=== PATIENT | female | born 1950 | race African-American/Black ===

== ENCOUNTER 2018-07-04 12:08 | Emergency (ER) | payer BC ==
[~2018-07-04] VITALS: Ht 167.6 cm; Wt 92.0 kg
[2018-07-04] MEDS ORDERED: SODIUM CHLORIDE 0.9% 1,000 ML IV ONE (12:30)
[2018-07-04 13:35] LABS: BASOPHILS % 0.8 % (0.0-2.0); EOSINOPHILS % 1.6 % (0.0-5.0); HEMATOCRIT. 40.5 % (36.0-48.0); HEMOGLOBIN. 13.4 g/dL (12.0-16.0); LYMPHOCYTES % 24.1 % (20.0-50.0); MEAN CORPUSCULAR HEMOGLOBIN 28.5 pg (28.0-32.0); MEAN CORPUSCULAR VOLUME 85.9 fL (81.0-99.0); MEAN PLATELET VOLUME 8.9 fl (7.4-10.4); MONOCYTES % 6.4 % (2.0-8.0); NEUTROPHILS % 67.1 % (40.0-76.0); PLATELET 275 x1000/uL (130-400); RED BLOOD CELL COUNT 4.71 mill/uL (4.2-5.4); RED CELL DISTRIBUTION WIDTH 13.3 % (11.6-14.6)
[2018-07-04 13:41] LABS: CHLORIDE 102 mEq/L (98-107)
[2018-07-04 14:29] LABS: CLARITY URINE CLOUDY (CLEAR); COLOR URINE YELLOW (YELLOW); KETONES URINE TRACE (NEGATIVE); LEUKOCYTE ESTERASE URINE TRACE (NEGATIVE); NITRITE URINE NEGATIVE (NEGATIVE); OCCULT BLOOD URINE NEGATIVE (NEGATIVE); PROTEIN URINE 1+ (NEGATIVE); SPECIFIC GRAVITY URINE 1.024 (1.005-1.030)
[2018-07-04 16:01] VITALS: BP 141/84
== END 2018-07-04 16:06 | disposition home or self-care (01) ==
LOC: ER 12:08
DX: R55 Syncope and collapse (principal); N39.0 Urinary tract infection, site not specified
CPT/HCPCS: 36415; 71045; 80053; 81003; 83880; 84484; 85025; 93005; 96360; 99284; J7030

== ENCOUNTER 2019-07-17 13:52 | Emergency (ER) | payer MEDICARE, OTHER ==
[~2019-07-17] VITALS: Ht 177.8 cm; Wt 82.0 kg
[2019-07-17 16:55] LABS: BASOPHILS % 0.3 % (0.0-2.0); EOSINOPHILS % 0.1 % (0.0-5.0); HEMATOCRIT. 38.7 % (36.0-48.0); HEMOGLOBIN. 12.8 g/dL (12.0-16.0); LYMPHOCYTES % 17.7 % (20.0-50.0); MEAN CORPUSCULAR HEMOGLOBIN 28.7 pg (28.0-32.0); MEAN CORPUSCULAR VOLUME 86.7 fL (81.0-99.0); MEAN PLATELET VOLUME 8.6 fl (7.4-10.4); MONOCYTES % 8.3 % (2.0-8.0); NEUTROPHILS % 73.6 % (40.0-76.0); PLATELET 199 x1000/uL (130-400); RED BLOOD CELL COUNT 4.47 mill/uL (4.2-5.4); RED CELL DISTRIBUTION WIDTH 13.8 % (11.6-14.6)
[2019-07-17 17:02] LABS: CHLORIDE 102 mEq/L (98-107)
[2019-07-17] MEDS ORDERED: ASPIRIN 81MG TABLET PO ONE (18:30)
[2019-07-17 20:15] VITALS: BP 127/68
== END 2019-07-17 22:38 | disposition left against medical advice (07) ==
LOC: ER 14:28 → CANBEDREQ 22:53
DX: R53.1 Weakness (principal); R55 Syncope and collapse; R03.0 Elevated blood-pressure reading, without diagnosis of hypertension; E11.9 Type 2 diabetes mellitus without complications; J45.909 Unspecified asthma, uncomplicated
CPT/HCPCS: 36415; 71045; 80053; 82962; 84484; 85025; 93005; 99285

== ENCOUNTER 2022-07-30 12:31 | Inpatient (IN) | payer MEDICARE, MEDICAID ==
[~2022-07-30] VITALS: Ht 172.7 cm; Wt 78.0 kg
[2022-07-30 14:09] LABS: BASOPHILS % 1.1 % (0.0-2.0); EOSINOPHILS % 0.2 % (0.0-5.0); HEMATOCRIT. 37.6 % (36.0-48.0); HEMOGLOBIN. 12.5 g/dL (12.0-16.0); LYMPHOCYTES % 13.3 % (20.0-50.0); MEAN CORPUSCULAR VOLUME 87.1 fL (81.0-99.0); MEAN PLATELET VOLUME 9.1 fl (7.4-10.4); NEUTROPHILS % 74.4 % (40.0-76.0); PLATELET 213 x1000/uL (130-400); RED BLOOD CELL COUNT 4.32 mill/uL (4.2-5.4); RED CELL DISTRIBUTION WIDTH 13.8 % (11.6-14.6)
[2022-07-30 14:12] LABS: CHLORIDE 103 mEq/L (98-107)
[2022-07-30 22:03] VITALS: BP 149/78
[2022-07-30] MEDS ORDERED: ACETAMINOPHEN 325MG TABLET PO PRN (22:45)
[2022-07-30] MEDS ORDERED: MAGNESIUM/ALUMINUM HYDROXIDE/SIMETHICONE 30ML UDC PO PRN (22:45)
[2022-07-30] MEDS ORDERED: ONDANSETRON HCL 4MG/2ML INJ IV PRN (22:45)
[2022-07-30] MEDS ORDERED: IPRATROPIUM/ALBUTEROL 0.5-3(2.5)MG/3ML NEB HHN PRN (22:45)
[2022-07-30] MEDS ORDERED: GUAIFENESIN 200MG/10ML SUGAR FREE UDC PO PRN (22:45)
[2022-07-30] MEDS ORDERED: DOCUSATE SODIUM 100MG CAPSULE PO PRN (22:45)
[2022-07-31] VITALS (7 sets, daily range): BP systolic 132–177; BP diastolic 70–104
[2022-07-31] MEDS ORDERED: CEFTRIAXONE 1GM PREMIX 50 ML IV SCH (04:45)
[2022-07-31] MEDS: CEFTRIAXONE 1,000 MG in DEXTROSE 5% WATER 50 ML IV SCH (05:30)
[2022-07-31 05:52] LABS: CHLORIDE 103 mEq/L (98-107)
[2022-07-31 06:05] LABS: HDL CHOLESTEROL 51 mg/dL (40-59); LDL CHOLESTEROL 124 mg/dL (5-100); PHOSPHORUS 2.9 mg/dL (2.5-4.9); T4 FREE 1.07 ng/dL (0.76-1.46)
[2022-07-31 06:16] LABS: BASOPHILS % 0.5 % (0.0-2.0); HEMATOCRIT. 37.4 % (36.0-48.0); HEMOGLOBIN. 12.6 g/dL (12.0-16.0); LYMPHOCYTES % 10.5 % (20.0-50.0); MEAN CORPUSCULAR VOLUME 86.2 fL (81.0-99.0); MEAN PLATELET VOLUME 8.7 fl (7.4-10.4); MONOCYTES % 10.6 % (2.0-8.0); NEUTROPHILS % 78.4 % (40.0-76.0); PLATELET 220 x1000/uL (130-400); RED BLOOD CELL COUNT 4.34 mill/uL (4.2-5.4); RED CELL DISTRIBUTION WIDTH 13.8 % (11.6-14.6)
[2022-07-31 08:14] LABS: CLARITY URINE CLEAR (CLEAR); COLOR URINE YELLOW (YELLOW); KETONES URINE 1+ (NEGATIVE); LEUKOCYTE ESTERASE URINE NEGATIVE (NEGATIVE); NITRITE URINE NEGATIVE (NEGATIVE); OCCULT BLOOD URINE 1+ (NEGATIVE); PH URINE 5.5 (4.5-8.0); PROTEIN URINE 1+ (NEGATIVE); SPECIFIC GRAVITY URINE 1.013 (1.005-1.030)
[2022-07-31] MEDS: FAMOTIDINE 20MG TABLET PO SCH ×2 (10:10→20:20)
[2022-07-31] MEDS: ENOXAPARIN 40MG/0.4ML SYR SUBCUT SCH (10:10)
[2022-07-31 11:04] LABS: CREATINE KINASE 124 IU/L (26-192); CREATINE KINASE MB FRACTION < 1.0 ng/mL (0.5-3.6)
[2022-07-31] MEDS ORDERED: ZOLPIDEM TARTRATE 5MG TABLET PO NR (22:00)
[2022-07-31] MEDS: CLONIDINE 0.1MG TABLET PO PRN (22:12)
[2022-08-01] VITALS: BP 120/70
[2022-08-01] MEDS ORDERED: HYDROCODONE/ACETAMINOPHEN 5/325MG TABLET PO PRN (00:30)
[2022-08-01] MEDS ORDERED: ACETAMINOPHEN 325MG TABLET PO PRN (00:30)
[2022-08-01 03:40] VITALS: BP 140/75
[2022-08-01] MEDS: CEFTRIAXONE 1,000 MG in DEXTROSE 5% WATER 50 ML IV SCH (06:28)
[2022-08-01 08:00] VITALS: BP 155/92
[2022-08-01] MEDS: ENOXAPARIN 40MG/0.4ML SYR SUBCUT SCH (09:00)
[2022-08-01] MEDS ORDERED: HEPARIN 5000 UNITS/ML VIAL SUBCUT SCH (09:00)
[2022-08-01] MEDS: FAMOTIDINE 20MG TABLET PO SCH (09:00)
[2022-08-01 12:00] VITALS: BP 124/64
[2022-08-01] MEDS: AMLODIPINE 5MG TABLET PO SCH ×2 (14:45→18:14)
[2022-08-01 15:17] VITALS: BP 140/73
[2022-08-01 20:00] VITALS: BP 136/90
[2022-08-02] VITALS: BP 143/86
[2022-08-02] MEDS: CEFTRIAXONE 1,000 MG in DEXTROSE 5% WATER 50 ML IV SCH (06:02)
[2022-08-02 07:47] VITALS: BP 172/89
[2022-08-02 07:51] VITALS: BP 146/77
[2022-08-02] MEDS: CLONIDINE 0.1MG TABLET PO PRN (08:02)
[2022-08-02] MEDS: AMLODIPINE 5MG TABLET PO SCH ×2 (09:00→11:33)
[2022-08-02] MEDS: ENOXAPARIN 40MG/0.4ML SYR SUBCUT SCH ×2 (09:00→11:33)
[2022-08-02] MEDS: FAMOTIDINE 20MG TABLET PO SCH ×2 (09:00→11:33)
[2022-08-02 12:00] VITALS: BP 135/70
[2022-08-02 16:00] VITALS: BP 111/47
[2022-08-03] VITALS: BP 133/57
[2022-08-03] MEDS: CEFTRIAXONE 1,000 MG in DEXTROSE 5% WATER 50 ML IV SCH ×2 (05:35→05:38)
[2022-08-03 08:00] VITALS: BP 151/65
[2022-08-03] MEDS: FAMOTIDINE 20MG TABLET PO SCH (08:58)
[2022-08-03] MEDS: AMLODIPINE 5MG TABLET PO SCH (08:58)
[2022-08-03] MEDS: ENOXAPARIN 40MG/0.4ML SYR SUBCUT SCH (08:58)
[2022-08-03] MEDS ORDERED: AMLO5TAB88 PO ×2 (10:34)
[2022-08-03 12:00] VITALS: BP 154/82
[2022-08-03 16:00] VITALS: BP 134/72
[2022-08-03 20:04] VITALS: BP 125/71
[2022-08-04 08:00] VITALS: BP 174/76
[2022-08-04] MEDS: AMLODIPINE 5MG TABLET PO SCH (09:00)
[2022-08-04] MEDS: ENOXAPARIN 40MG/0.4ML SYR SUBCUT SCH (09:00)
[2022-08-04] MEDS: FAMOTIDINE 20MG TABLET PO SCH (09:00)
[2022-08-04 12:00] VITALS: BP 154/84
[2022-08-05 02:43] VITALS: BP 155/76
[2022-08-05 05:27] VITALS: BP 159/64
[2022-08-05 08:00] VITALS: BP 142/91
[2022-08-05] MEDS: ENOXAPARIN 40MG/0.4ML SYR SUBCUT SCH (09:00)
[2022-08-05] MEDS: FAMOTIDINE 20MG TABLET PO SCH (09:00)
[2022-08-05] MEDS: AMLODIPINE 5MG TABLET PO SCH (09:00)
[2022-08-05 12:00] VITALS: BP 156/86
[2022-08-05 16:00] VITALS: BP 140/86
[2022-08-05 20:00] VITALS: BP 164/83
[2022-08-06] VITALS: BP 128/91
[2022-08-06 04:00] VITALS: BP 144/92
[2022-08-06 07:54] VITALS: BP 135/78
[2022-08-06 08:00] VITALS: BP 135/78
[2022-08-06] MEDS: ENOXAPARIN 40MG/0.4ML SYR SUBCUT SCH (09:00)
[2022-08-06] MEDS: FAMOTIDINE 20MG TABLET PO SCH ×2 (10:05→13:30)
[2022-08-06] MEDS: AMLODIPINE 5MG TABLET PO SCH ×2 (10:05→10:30)
[2022-08-06 12:00] VITALS: BP 142/81
[2022-08-06 20:00] VITALS: BP 143/65
[2022-08-06] MEDS: HALOPERIDOL LACTATE 5MG/ML VIAL IM PRN (21:12)
[2022-08-07 04:00] VITALS: BP 154/73
[2022-08-07] MEDS: ENOXAPARIN 40MG/0.4ML SYR SUBCUT SCH (09:00)
[2022-08-07] MEDS ORDERED: FAMO-135 MT ×2 (10:39)
[2022-08-07] MEDS ORDERED: CLOP-31 MT ×2 (10:39)
[2022-08-07] MEDS ORDERED: ATOR20TA MT ×2 (10:39)
[2022-08-07] MEDS: CLOPIDOGREL 75MG TABLET PO SCH (13:15)
[2022-08-07 16:00] VITALS: BP 144/62
[2022-08-07 20:00] VITALS: BP 136/80
[2022-08-07] MEDS: ATORVASTATIN CALCIUM 20MG TABLET PO SCH (21:10)
[2022-08-08 08:00] VITALS: BP 132/52
[2022-08-08] MEDS: AMLODIPINE 5MG TABLET PO SCH (11:37)
[2022-08-08] MEDS: FAMOTIDINE 20MG TABLET PO SCH (11:37)
[2022-08-08] MEDS: CLOPIDOGREL 75MG TABLET PO SCH (11:37)
[2022-08-08] MEDS: ENOXAPARIN 40MG/0.4ML SYR SUBCUT SCH (11:39)
[2022-08-08] MEDS: HALOPERIDOL LACTATE 5MG/ML VIAL IM PRN (12:08)
[2022-08-08 12:43] LABS: HEMATOCRIT 38.1 % (36.0-48.0); HEMOGLOBIN 12.6 g/dL (12.0-16.0); MEAN CORPUSCULAR HEMOGLOBIN 28.6 pg (28.0-32.0); PLATELET 252 x1000/uL (130-400); RED BLOOD CELL COUNT 4.43 mill/uL (4.2-5.4); RED CELL DISTRIBUTION WIDTH 13.7 % (11.6-14.6)
[2022-08-08 12:49] LABS: CHLORIDE 103 mEq/L (98-107)
[2022-08-08 16:00] VITALS: BP 139/70
[2022-08-08 20:00] VITALS: BP 140/87
[2022-08-08] MEDS: ATORVASTATIN CALCIUM 20MG TABLET PO SCH (22:04)
[2022-08-09] VITALS: BP 127/82
[2022-08-09 04:00] VITALS: BP 140/86
[2022-08-09 08:00] VITALS: BP 155/87
[2022-08-09] MEDS: AMLODIPINE 5MG TABLET PO SCH (09:00)
[2022-08-09] MEDS: CLOPIDOGREL 75MG TABLET PO SCH (09:00)
[2022-08-09] MEDS: ENOXAPARIN 40MG/0.4ML SYR SUBCUT SCH (09:00)
[2022-08-09] MEDS: FAMOTIDINE 20MG TABLET PO SCH (09:00)
[2022-08-09 12:00] VITALS: BP 159/93
[2022-08-09 16:00] VITALS: BP 133/80
[2022-08-09 20:00] VITALS: BP 133/79
[2022-08-09] MEDS: ATORVASTATIN CALCIUM 20MG TABLET PO SCH (20:47)
[2022-08-10] VITALS: BP 144/61
[2022-08-10 04:00] VITALS: BP 151/74
[2022-08-10 08:00] VITALS: BP 139/80
[2022-08-10 16:00] VITALS: BP 123/75
[2022-08-10] MEDS: CLOPIDOGREL 75MG TABLET PO SCH (16:02)
[2022-08-10] MEDS: AMLODIPINE 5MG TABLET PO SCH (16:03)
[2022-08-10] MEDS: FAMOTIDINE 20MG TABLET PO SCH (16:03)
[2022-08-10] MEDS: ENOXAPARIN 40MG/0.4ML SYR SUBCUT SCH (16:04)
[2022-08-10] MEDS: ATORVASTATIN CALCIUM 20MG TABLET PO SCH ×2 (20:55→20:59)
[2022-08-11 04:00] VITALS: BP 155/80
[2022-08-11] MEDS: FAMOTIDINE 20MG TABLET PO SCH (09:00)
[2022-08-11] MEDS: ENOXAPARIN 40MG/0.4ML SYR SUBCUT SCH (09:00)
[2022-08-11] MEDS: CLOPIDOGREL 75MG TABLET PO SCH (09:00)
[2022-08-11] MEDS: AMLODIPINE 5MG TABLET PO SCH (09:00)
[2022-08-11 20:00] VITALS: BP 137/88
[2022-08-11] MEDS: ATORVASTATIN CALCIUM 20MG TABLET PO SCH (21:37)
[2022-08-12] VITALS: BP 140/82
[2022-08-12 08:00] VITALS: BP 131/85
[2022-08-12] MEDS: CLOPIDOGREL 75MG TABLET PO SCH (09:00)
[2022-08-12] MEDS: AMLODIPINE 5MG TABLET PO SCH (09:00)
[2022-08-12] MEDS: ENOXAPARIN 40MG/0.4ML SYR SUBCUT SCH (09:00)
[2022-08-12] MEDS: FAMOTIDINE 20MG TABLET PO SCH (09:00)
[2022-08-12 12:00] VITALS: BP 144/82
[2022-08-12 13:07] LABS: QFT MITOGEN VALUE >10.00 IU/mL (.); QFT TB GOLD PLUS Negative (Negative); QFT TB1 AG VALUE 0.05 IU/mL (.)
[2022-08-12 16:00] VITALS: BP 135/79
[2022-08-12] MEDS: ATORVASTATIN CALCIUM 20MG TABLET PO SCH (21:00)
[2022-08-13] MEDS: AMLODIPINE 5MG TABLET PO SCH (09:00)
[2022-08-13] MEDS: CLOPIDOGREL 75MG TABLET PO SCH (09:00)
[2022-08-13] MEDS: ENOXAPARIN 40MG/0.4ML SYR SUBCUT SCH (09:00)
[2022-08-13] MEDS: FAMOTIDINE 20MG TABLET PO SCH (09:00)
[2022-08-13 11:54] VITALS: BP 131/68
[2022-08-13 15:25] VITALS: BP 151/73
[2022-08-13 20:00] VITALS: BP 124/67
[2022-08-13] MEDS: ATORVASTATIN CALCIUM 20MG TABLET PO SCH (21:02)
[2022-08-14] VITALS: BP 118/70
[2022-08-14 04:00] VITALS: BP 113/80
[2022-08-14 07:01] LABS: BASOPHILS % 0.6 % (0.0-2.0); EOSINOPHILS % 0.4 % (0.0-5.0); LYMPHOCYTES % 20.8 % (20.0-50.0); MEAN CORPUSCULAR HEMOGLOBIN 27.9 pg (28.0-32.0); MEAN CORPUSCULAR VOLUME 86.1 fL (81.0-99.0); MEAN PLATELET VOLUME 9.3 fl (7.4-10.4); MONOCYTES % 9.2 % (2.0-8.0); PLATELET 287 x1000/uL (130-400); RED BLOOD CELL COUNT 4.65 mill/uL (4.2-5.4); RED CELL DISTRIBUTION WIDTH 13.8 % (11.6-14.6)
[2022-08-14 07:14] LABS: CHLORIDE 103 mEq/L (98-107)
[2022-08-14 08:00] VITALS: BP 139/87
[2022-08-14] MEDS: ENOXAPARIN 40MG/0.4ML SYR SUBCUT SCH (08:57)
[2022-08-14] MEDS: CLOPIDOGREL 75MG TABLET PO SCH (08:57)
[2022-08-14] MEDS: AMLODIPINE 5MG TABLET PO SCH (08:57)
[2022-08-14] MEDS: FAMOTIDINE 20MG TABLET PO SCH (08:57)
[2022-08-14 14:23] VITALS: BP 116/86
== END 2022-08-14 16:30 | DRG 64 ==
LOC: ER 12:31 → 3WST 20:04 → EDBEDREQ 20:21 → ENRESERV 21:02 → 6WST 08-05 02:30 → 6EST 08-13 18:17
PROVIDERS: ADMIT Internal Medicine; ATTEND Internal Medicine
DX: I63.9 Cerebral infarction, unspecified (principal); G92.8 Other toxic encephalopathy; E87.1 Hypo-osmolality and hyponatremia; E87.20 Acidosis, unspecified; F03.90 Unspecified dementia, unspecified severity, without behavioral disturbance, psychotic disturbance, mood disturbance, and anxiety; E86.0 Dehydration; G93.89 Other specified disorders of brain; J45.909 Unspecified asthma, uncomplicated; I11.9 Hypertensive heart disease without heart failure; E11.9 Type 2 diabetes mellitus without complications
CPT/HCPCS: 36415; 70551; 71045; 80048; 80053; 80061; 81003; 82140; 82550; 82553; 83605; 83735; 84100; 84145; 84439; 84443; 84484; 85025; 85027; 86480; 93005; 93306; 93880; 93970; 97162; 97166; 97530; 97535; 99285; J0696; J1630; J1650; J7060